=== PATIENT | female | born 1960 | race Two or more races ===

== ENCOUNTER 2018-11-10 22:21 | Emergency (ER) | payer MEDICAID, OTHER ==
[~2018-11-10] VITALS: Ht 162.6 cm; Wt 81.6 kg
[2018-11-10 23:15] LABS: Urine WBC None Seen /hpf (0 - 5)
[2018-11-10 23:28] LABS: Urine Bacteria NONE SEEN /hpf (None Seen); Urine Blood Negative /uL (Negative); Urine Specific Gravity 1.007 (1.001-1.035)
[2018-11-11 00:01] LABS: Basophils # (auto) 0 uL; Red Cell Distribution Width 14.4 % (11.8-14.3); White Blood Cell 4.6 10^3/uL (4.4-10.8)
[2018-11-11 00:03] LABS: Basophils % (auto) 0.3 % (0.0-2.0); Eosinophils # (auto) 0.1 uL; Eosinophils % (auto) 2.4 % (0.0-7.0); Hematocrit 37.2 % (36.0-46.0); Hemoglobin 11.7 g/dL (12.2-16.2); Lymphocytes # (auto) 1.9 uL; Lymphocytes % (auto) 40.4 % (10.0-50.0); Mean Corpuscular Hemoglobin 25.2 pg (28.0-32.0); Mean Corpuscular Hgb Conc. 31.5 g/dL (32.0-36.0); Mean Corpuscular Volume 79.9 fL (80.0-100.0); Monocytes # (auto) 0.5 uL; Monocytes % (auto) 10.4 % (0.0-12.0); Neutrophils # (auto) 2.1 uL; Neutrophils % (auto) 46.5 % (37.0-80.0); Platelet Count (auto) 245 10^3/uL (140-450); Red Blood Cells 4.65 10^6/uL (4.0-5.20)
[2018-11-11 00:18] LABS: Alanine Aminotransferase 45 U/L (13-56); Anion Gap 7 (5-15); Aspartate Aminotransferase 24 U/L (15-37); BUN/Creatinine Ratio 27.2; Blood Urea Nitrogen 22 mg/dL (7-18); Carbon Dioxide 27 mmol/L (21-32); Chloride 104 mmol/L (98-107); GFR African American 93 mL/min; GFR Non-African American 77 mL/min; Glucose 113 mg/dL (74-106); Lipase 187 U/L (73-393); Magnesium 2.1 mg/dL (1.6-2.6); Potassium 4.5 mmol/L (3.5-5.1); Sodium 138 mmol/L (136-145)
[2018-11-11 00:32] LABS: Alkaline Phosphatase 125 U/L (45-117); Bilirubin, Total 0.1 mg/dL (0.2-1.0); Calcium 8.5 mg/dL (8.5-10.1); Total Protein 7.6 g/dL (6.4-8.2)
[2018-11-11 09:27] VITALS: BP 151/71
== END 2018-11-11 09:28 | disposition home or self-care (01) ==
LOC: ER 22:21
DX: R10.31 Right lower quadrant pain (principal); R10.32 Left lower quadrant pain; E11.9 Type 2 diabetes mellitus without complications; I10 Essential (primary) hypertension; M54.9 Dorsalgia, unspecified; E07.9 Disorder of thyroid, unspecified; Z90.49 Acquired absence of other specified parts of digestive tract; Z90.710 Acquired absence of both cervix and uterus; Z88.2 Allergy status to sulfonamides; Z88.1 Allergy status to other antibiotic agents
CPT/HCPCS: 36415; 71045; 74176; 80053; 81001; 83690; 83735; 84484; 85025; 93005

== ENCOUNTER → 2021-11-10 | Outpatient (CLI) | payer MEDICAID | END | disposition home or self-care (01) | LOC: RT 10:10 | PROVIDERS: ATTEND Internal Medicine Pulmonary Disease | DX: U09.9 Post COVID-19 condition, unspecified (principal) | CPT/HCPCS: 36415; 94060; 94618; 94727; 94729 ==

== ENCOUNTER → 2024-12-12 | Outpatient (CLI) | payer OTHER, MEDICAID ==
[~2024-12-12] MED LIST: ALBUTEROL SULF 2.5 MG/0.5ML(0.5%) NEB SOLN ONE
== END | disposition home or self-care (01) ==
LOC: RT 08:48
PROVIDERS: ATTEND Internal Medicine Pulmonary Disease
DX: R06.09 Other forms of dyspnea (principal)
CPT/HCPCS: 94060; 94727; 94729